=== PATIENT | female | born 1970 | race Caucasian/White ===

== ENCOUNTER 2021-11-12 14:25 | Observation (INO) ==
[2021-11-12] MEDS ORDERED: Ondansetron 4 MG/2 ML VIAL IVP PRN (21:32)
[2021-11-12] MEDS ORDERED: Naloxone 0.4 MG/ML INJ IVP PRN (21:32)
[2021-11-12] MEDS ORDERED: Perflutren Lipid Microsphere 1.3 ML in 0.9 % Sodium Chloride 8.7 ML IVP PRN (21:37)
[2021-11-12] MEDS ORDERED: *HR* Dextrose 50 % in Water (Syg) 50 ML SYRINGE IVP PRN (21:38)
[2021-11-12] MEDS ORDERED: Dextrose Gel 15 GM/37.5 ML TUBE PO PRN ×2 (21:38)
[2021-11-12] MEDS ORDERED: D5% in Water 1,000 ML IVC PRN (21:38)
[2021-11-12] MEDS ORDERED: 0.9 % Sodium Chloride 1,000 ML IVC SCH (21:45)
[2021-11-13] MEDS: Insulin LISPRO 300 UNITS/3 ML VIAL SUBQ SCH ×4 (00:27→19:44)
[2021-11-13] MEDS ORDERED: Melatonin 3 MG TABLET PO PRN (00:43)
[2021-11-13 01:13] LABS: Amphetamine Screen,Urine Negative ng/mL (Cutoff=1000); Barbiturate Screen,Urine Negative ng/mL (Cutoff=200); Benzodiazepines Screen,Urine Negative ng/mL (Cutoff=200); Cannabinoid Screen,Urine Positive ng/mL (Cutoff = 50); Cocaine Screen,Urine Negative ng/mL (Cutoff= 300); Opiate Screen,Urine Negative ng/mL (Cutoff=300); Phencyclidine Screen,Urine Negative ng/mL (Cutoff=25)
[2021-11-13] MEDS: Acetaminophen 325 MG TABLET PO PRN ×2 (01:34→09:30)
[2021-11-13] MEDS: *HR* Heparin 5,000 UNIT/ML VIAL SQ SCH ×3 (05:39→21:32)
[2021-11-13 08:19] LABS: Basophils % 0.1 %; Hematocrit 48.4 % (35.3-44.9); Hemoglobin 15.8 g/dL (11.5-15.4); Immature Granulocytes % 0.6 % (0-4); Lymphocytes # 1.4 K/mcL (0.6-4.6); Lymphocytes % 21.2 %; Mean Corpuscular HGB Conc 32.6 g/dL (31.6-35.5); Mean Corpuscular Volume 94.9 fL (83.0-100.0); Mean Platelet Volume 10.9 fL (9.4-12.4); Monocytes # 0.6 K/mcL (0.0-1.3); Monocytes % 9.3 %; Neutrophils # 4.7 K/mcL (1.6-8.9); Platelet Count 273 K/mcL (140-400); Red Cell Distribution Width 12.7 % (11.5-14.5); Segmented Neutrophils % 68.8 %; White Blood Count 6.8 K/mcL (4.3-11.1)
[2021-11-13 08:27] LABS: INR 1.1; Prothrombin Time 12.4 Seconds (9.4-12.1)
[2021-11-13 08:30] LABS: Activated Partial Thrombo Time 35.9 Seconds (26.0-36.0)
[2021-11-13 08:42] LABS: Alanine Aminotransferase 14 Units/L (7-52); Albumin 4.3 g/dL (3.5-5.7); Albumin/Globulin Ratio 1.5 (1.1-2.2); Alkaline Phosphatase 62 Units/L (34-104); Aspartate Amino Transferase 22 Units/L (13-39); BUN/Creatinine Ratio 19 (6-26); Bilirubin,Total 0.3 mg/dL (0.3-1.0); Blood Urea Nitrogen 16 mg/dL (6-20); Calcium 9.1 mg/dL (8.6-10.3); Carbon Dioxide 20 mEq/L (23-29); Chloride 105 mEq/L (98-107); Chol/HDL Ratio 3.9 (0-4.9); Cholesterol 150 mg/dL (< 200); Globulin 2.9 g/dL (2.4-3.5); Glucose 154 mg/dL (70-105); HDL Cholesterol 38 mg/dL (40-59); LDL Cholesterol,Calculated 68 mg/dL (< 100); Osmolality,Calculated 290 (280-300); Potassium 4.1 mEq/L (3.5-5.1); Sodium 138 mEq/L (136-145); Total Protein 7.2 g/dL (6.4-8.9); Triglycerides 221 mg/dL (< 150); eGFR For African Americans > 60 (> 60); eGFR For Non-African Americans > 60 (> 60)
[2021-11-13] MEDS: Fenofibrate 54 MG TABLET PO SCH (08:44)
[2021-11-13] MEDS: lisinopriL 10 MG TABLET PO SCH (08:45)
[2021-11-13 21:18] LABS: Influenza A PCR Negative (Negative); Influenza B PCR Negative (Negative); Resp. Syncytial Virus PCR Negative (Negative)
[2021-11-13 21:36] LABS: SARS-CoV-2 by PCR (In House) Positive (Negative)
[2021-11-14] MEDS: Insulin LISPRO 300 UNITS/3 ML VIAL SUBQ SCH ×3 (01:00→13:55)
[2021-11-14] MEDS: *HR* Heparin 5,000 UNIT/ML VIAL SQ SCH ×2 (05:09→13:54)
[2021-11-14] MEDS: lisinopriL 10 MG TABLET PO SCH (09:33)
[2021-11-14] MEDS: Fenofibrate 54 MG TABLET PO SCH (09:33)
[2021-11-14 11:12] VITALS: TEMP 98.1; O2SAT 96
[2021-11-14 14:22] VITALS: BP 156/82; PULSE 86
== END 2021-11-14 15:35 | disposition home or self-care (01) ==
LOC: 2NNU → SUATTDRO 20:55 → 2ANU 11-13 15:57 → 2NENU 11-13 16:51
PROVIDERS: ADMIT Hospitalist; ATTEND Internal Medicine